=== PATIENT | male | born 1980 | race Caucasian/White ===

== ENCOUNTER 2018-03-23 23:58 | Emergency (ER) | payer MEDICAID, OTHER ==
[~2018-03-23] VITALS: Ht 175.3 cm; Wt 63.0 kg
[~2018-03-23 23:58] MED LIST: ALBU18HF2 INH; ALBU6.7H INH; BENZ-49 PO; CEPH-571 PO; GUAI120015 PO; NO HOME MEDS; ONDA4TAB12 PO; PRED-352 PO
[2018-03-24 00:01] VITALS: BP 130/80
[2018-03-24] MEDS ORDERED: CLIN300C54 PO (00:47)
[2018-03-24] MEDS ORDERED: IBUP-1986 PO (00:47)
== END 2018-03-24 01:03 | disposition home or self-care (01) ==
LOC: ER 23:59
DX: L03.114 Cellulitis of left upper limb (principal); B95.8 Unspecified staphylococcus as the cause of diseases classified elsewhere; M79.672 Pain in left foot; F12.10 Cannabis abuse, uncomplicated; Z90.89 Acquired absence of other organs; Z88.0 Allergy status to penicillin
CPT/HCPCS: 73630; 99284

== ENCOUNTER 2018-07-16 18:11 | Emergency (ER) | payer MEDICAID ==
[~2018-07-16 18:11] MED LIST changes: +IBUP-1986 PO
--- NOTE | 2018-07-16 20:49 | NUR ---
NO RESPONSE FROM [facility] AFTER 3 ATTEMPTS TO INTAKE. CALL PLACED TO NUMBER ON FILE. MESSAGE LEFT EXPRESSING CONCERN FOR PT'S WELL BEING AND TO ENCOURAGE HIM TO RETURN FOR EVAL. DR CAIN INFORMED.
== END 2018-07-16 20:54 | disposition left against medical advice (07) ==
LOC: ER 18:11
DX: R07.81 Pleurodynia (principal); Z53.21 Procedure and treatment not carried out due to patient leaving prior to being seen by health care provider

== ENCOUNTER 2019-08-06 01:51 | Emergency (ER) | payer MEDICAID ==
[~2019-08-06] VITALS: Ht 177.8 cm; Wt 81.8 kg
[~2019-08-06 01:51] MED LIST changes: -ALBU6.7H INH; +ALBU6.7H9 INH
[2019-08-06] MEDS ORDERED: DOXY100C76 PO (02:47)
[2019-08-06 02:54] VITALS: BP 158/81
== END 2019-08-06 02:56 | disposition home or self-care (01) ==
LOC: ER 01:52
DX: S61.552A Open bite of left wrist, initial encounter (principal); F17.200 Nicotine dependence, unspecified, uncomplicated; F12.90 Cannabis use, unspecified, uncomplicated; F15.90 Other stimulant use, unspecified, uncomplicated; Z86.14 Personal history of Methicillin resistant Staphylococcus aureus infection; Z90.49 Acquired absence of other specified parts of digestive tract; Z90.89 Acquired absence of other organs; Z88.0 Allergy status to penicillin; Z79.899 Other long term (current) drug therapy; W54.0XXA Bitten by dog, initial encounter; Y93.89 Activity, other specified; Y92.89 Other specified places as the place of occurrence of the external cause; Y99.8 Other external cause status
CPT/HCPCS: 73110; 73140; 99284

== ENCOUNTER 2019-08-10 06:18 | Emergency (ER) | payer MEDICAID ==
[~2019-08-10] VITALS: Ht 175.3 cm; Wt 79.5 kg
[~2019-08-10 06:18] MED LIST changes: +DOXY100C76 PO
[2019-08-10 06:19] VITALS: BP 154/88
== END 2019-08-10 07:35 | disposition home or self-care (01) ==
LOC: ER 06:18
DX: S61.211D Laceration without foreign body of left index finger without damage to nail, subsequent encounter (principal); F12.90 Cannabis use, unspecified, uncomplicated; F15.90 Other stimulant use, unspecified, uncomplicated; Z90.49 Acquired absence of other specified parts of digestive tract; Z90.89 Acquired absence of other organs; Z86.14 Personal history of Methicillin resistant Staphylococcus aureus infection; Z88.0 Allergy status to penicillin; Z79.899 Other long term (current) drug therapy; W54.0XXD Bitten by dog, subsequent encounter
CPT/HCPCS: 99282

== ENCOUNTER 2019-09-05 00:56 | Emergency (ER) | payer MEDICAID ==
[~2019-09-05] VITALS: Ht 175.3 cm; Wt 81.8 kg
[~2019-09-05 00:56] MED LIST changes: -DOXY100C76 PO
[2019-09-05] MEDS ORDERED: mupirocin 2% ointment 22GM TP STA (01:36)
[2019-09-05] MEDS ORDERED: CefTRIAXone 250MG IM Kit w/LIDOcaine IM ONE (01:40)
[2019-09-05] MEDS ORDERED: azithromycin 250mg tablet PO ONE (01:40)
[2019-09-05 02:19] VITALS: BP 127/77
== END 2019-09-05 02:21 | disposition home or self-care (01) ==
LOC: ER 00:57
DX: S90.812A Abrasion, left foot, initial encounter (principal); L98.9 Disorder of the skin and subcutaneous tissue, unspecified; F17.200 Nicotine dependence, unspecified, uncomplicated; F12.90 Cannabis use, unspecified, uncomplicated; F15.90 Other stimulant use, unspecified, uncomplicated; Z90.49 Acquired absence of other specified parts of digestive tract; Z86.73 Personal history of transient ischemic attack (TIA), and cerebral infarction without residual deficits; Z90.89 Acquired absence of other organs; Z88.0 Allergy status to penicillin; Z79.899 Other long term (current) drug therapy; X58.XXXA Exposure to other specified factors, initial encounter; Y93.89 Activity, other specified; Y92.89 Other specified places as the place of occurrence of the external cause; Y99.8 Other external cause status
CPT/HCPCS: 36415; 87491; 87591; 96372; 99283; J0696

== ENCOUNTER 2019-11-08 21:23 | Emergency (ER) | payer MEDICAID ==
[~2019-11-08] VITALS: Ht 175.3 cm; Wt 81.8 kg
[2019-11-08] MEDS ORDERED: azithromycin 250mg tablet PO ONE (21:45)
[2019-11-08] MEDS ORDERED: CefTRIAXone 250MG IM Kit w/LIDOcaine IM ONE (21:45)
[2019-11-08] MEDS ORDERED: DOXY100C76 PO (21:49)
[2019-11-08 22:05] VITALS: BP 134/69
[2019-11-12 05:14] LABS: RPR Reactive (Non Reactive)
== END 2019-11-08 22:10 | disposition home or self-care (01) ==
LOC: ER 21:24
DX: Z20.2 Contact with and (suspected) exposure to infections with a predominantly sexual mode of transmission (principal); F12.90 Cannabis use, unspecified, uncomplicated; F15.90 Other stimulant use, unspecified, uncomplicated; Z86.14 Personal history of Methicillin resistant Staphylococcus aureus infection; Z90.89 Acquired absence of other organs; Z98.890 Other specified postprocedural states; Z88.0 Allergy status to penicillin; Z79.2 Long term (current) use of antibiotics; Z79.899 Other long term (current) drug therapy
CPT/HCPCS: 36415; 86592; 87491; 87591; 96372; 99283; J0696

== ENCOUNTER 2020-01-14 12:55 | Emergency (ER) | payer MEDICAID ==
[~2020-01-14] VITALS: Ht 175.3 cm; Wt 84.1 kg
[2020-01-14] MEDS ORDERED: CEPH250T PO (13:32)
--- NOTE | 2020-01-14 13:39 | NUR ---
Seen and assessed by provider.
[2020-01-14 13:45] VITALS: BP 132/70
== END 2020-01-14 13:54 | disposition home or self-care (01) ==
LOC: ER 12:55
DX: Z48.01 Encounter for change or removal of surgical wound dressing (principal); F12.90 Cannabis use, unspecified, uncomplicated; F15.90 Other stimulant use, unspecified, uncomplicated; Z86.14 Personal history of Methicillin resistant Staphylococcus aureus infection; Z90.49 Acquired absence of other specified parts of digestive tract; Z88.0 Allergy status to penicillin; Z79.899 Other long term (current) drug therapy
CPT/HCPCS: 99283

== ENCOUNTER 2020-08-26 11:28 | Emergency (ER) | payer MEDICAID ==
[~2020-08-26] VITALS: Ht 175.3 cm; Wt 88.6 kg
[2020-08-26 11:31] VITALS: BP 127/81
--- NOTE | 2020-08-26 13:35 | NUR ---
Attempted to call patient back with no answer. Greer PA aware of LWOBS.
== END 2020-08-26 13:36 | disposition left against medical advice (07) ==
LOC: ER 11:29
DX: A63.8 Other specified predominantly sexually transmitted diseases (principal); Z53.21 Procedure and treatment not carried out due to patient leaving prior to being seen by health care provider

== ENCOUNTER 2020-09-09 22:01 | Emergency (ER) | payer MEDICAID ==
[~2020-09-09] VITALS: Ht 175.3 cm; Wt 88.6 kg
[2020-09-09 22:09] VITALS: BP 124/78
== END 2020-09-10 01:04 | disposition left against medical advice (07) ==
LOC: ER 22:01
DX: L02.419 Cutaneous abscess of limb, unspecified (principal); Z53.21 Procedure and treatment not carried out due to patient leaving prior to being seen by health care provider

== ENCOUNTER 2020-10-29 16:15 | Emergency (ER) | payer MEDICAID ==
[~2020-10-29] VITALS: Ht 175.3 cm; Wt 90.0 kg
[2020-10-29 16:19] VITALS: BP 117/77
[2020-10-29] MEDS ORDERED: TETanus/Pertussis (Acell)/Diphther VAC/PF (Tdap-Adult) 0.5ml syringe IMVAC ONE (17:20)
[2020-10-29] MEDS ORDERED: LIDOcaine 1% W/epiNEPHrine 1:200,000 10ml vial IJ ONE (17:20)
[2020-10-29] MEDS ORDERED: DOXY100C2 PO (19:05)
[2020-10-29] MEDS ORDERED: CEPH-585 PO (19:05)
[2020-10-29] MEDS ORDERED: DOXYCYCLINE 100MG CAPSULE PO STA (19:18)
[2020-10-29] MEDS ORDERED: cephalexin 250mg capsule PO ONE (19:20)
== END 2020-10-29 19:56 | disposition home or self-care (01) ==
LOC: ER 16:16
DX: N49.2 Inflammatory disorders of scrotum (principal); L02.211 Cutaneous abscess of abdominal wall; F12.90 Cannabis use, unspecified, uncomplicated; F15.90 Other stimulant use, unspecified, uncomplicated; Z86.14 Personal history of Methicillin resistant Staphylococcus aureus infection; Z90.89 Acquired absence of other organs; Z98.890 Other specified postprocedural states; Z88.0 Allergy status to penicillin; Z79.2 Long term (current) use of antibiotics; Z79.899 Other long term (current) drug therapy
CPT/HCPCS: 10060; 54700; 76882; 99284

== ENCOUNTER 2020-12-05 13:51 | Emergency (ER) | payer MEDICAID ==
[~2020-12-05] VITALS: Ht 175.3 cm; Wt 94.0 kg
--- NOTE | 2020-12-05 14:54 | NUR ---
provider at triage to evaluate pt,
[2020-12-05 15:35] VITALS: BP 170/10
[2020-12-05 16:16] LABS: BASOPHILS # (AUTO) 0.1 X10'3 (0-0.2); BASOPHILS % (AUTO) 1.3 % (0-1); EOSINOPHILS # (AUTO) 0.1 X10'3 (0-0.9); EOSINOPHILS % (AUTO) 1.7 % (0-6); HEMATOCRIT 45.7 % (42.0-52.0); HEMOGLOBIN 15.5 g/dl (14.0-17.9); LYMPHOCYTES # (AUTO) 1.2 X10'3 (1.1-4.8); LYMPHOCYTES % (AUTO) 17.6 % (21-51); MEAN CORPUSCULAR HEMOGLOBIN 27.3 PG (27.0-31.0); MEAN CORPUSCULAR VOLUME 80.4 FL (78-98); MEAN PLATELET VOLUME 6.3 FL (7.4-10.4); MONOCYTES # (AUTO) 0.6 X10'3 (0-0.9); MONOCYTES % (AUTO) 8.8 % (2-12); NEUTROPHILS # (AUTO) 4.9 X10'3 (1.8-7.7); NEUTROPHILS % (AUTO) 70.6 % (42-75); PLATELET COUNT 207 X10'3 (140-440); RED BLOOD COUNT 5.69 X10'6 (4.70-6.10); RED CELL DISTRIBUTION WIDTH 15.5 % (11.5-14.5); WHITE BLOOD COUNT 6.9 X10'3 (4.5-11.0)
[2020-12-05 16:31] LABS: D-DIMER 0.32 MG/L FEU (0-0.50); PARTIAL THROMBOPLASTIN TIME 24 SECONDS (22-32)
[2020-12-05 16:32] LABS: ALANINE AMINOTRANSFERASE 33 U/L (12-78); ALBUMIN 3.7 G/DL (3.4-5.0); ALBUMIN/GLOBULIN RATIO 0.9 (1.1-1.5); ALKALINE PHOSPHATASE 76 IU/L (46-116); ANION GAP 7 (8-16); ASPARTATE AMINO TRANSFERASE 21 U/L (10-37); BILIRUBIN,TOTAL 0.3 MG/DL (0.1-1.0); BLOOD UREA NITROGEN 14 MG/DL (7-18); BUN/CREATININE RATIO 15.7 (5.4-32.0); CALCIUM 8.6 MG/DL (8.5-10.1); CHLORIDE 104 MMOL/L (99-107); CREATININE 0.89 MG/DL (0.60-1.10); GLUCOSE 95 MG/DL (70-104); POTASSIUM 4.1 MMOL/L (3.5-5.1); SODIUM 140 MMOL/L (135-145); TOTAL CARBON DIOXIDE 28.9 MMOL/L (24-32); TOTAL PROTEIN 7.8 G/DL (6.4-8.2); eGFR > 90 ML/MIN
[2020-12-05 16:41] LABS: MAGNESIUM 2.2 MG/DL (1.5-2.4)
[2020-12-05] MEDS ORDERED: SULF1TAB49 PO (16:58)
== END 2020-12-05 17:23 | disposition home or self-care (01) ==
LOC: ER 13:54
DX: R07.9 Chest pain, unspecified (principal); L02.91 Cutaneous abscess, unspecified; R06.02 Shortness of breath; R05 Cough; F17.210 Nicotine dependence, cigarettes, uncomplicated; Z88.0 Allergy status to penicillin; Z79.899 Other long term (current) drug therapy; F12.10 Cannabis abuse, uncomplicated; F15.10 Other stimulant abuse, uncomplicated
CPT/HCPCS: 36415; 71046; 80053; 83735; 83880; 84443; 84484; 85025; 85379; 85610; 85730; 93005; 99285

== ENCOUNTER 2022-03-11 10:04 | Emergency (ER) | payer MEDICAID ==
[~2022-03-11] VITALS: Ht 175.3 cm; Wt 86.4 kg
[~2022-03-11 10:04] MED LIST changes: +ALBU6.7H14 INH; -ALBU6.7H9 INH; -BENZ-49 PO; +TES100C PO
[2022-03-11 10:48] VITALS: BP 108/72
[2022-03-11] MEDS ORDERED: DOXY100C43 PO (11:41)
== END 2022-03-11 11:47 | disposition home or self-care (01) ==
LOC: ER 10:05
DX: L73.8 Other specified follicular disorders (principal); F12.10 Cannabis abuse, uncomplicated; F15.10 Other stimulant abuse, uncomplicated; Z86.14 Personal history of Methicillin resistant Staphylococcus aureus infection; Z88.0 Allergy status to penicillin; Z79.899 Other long term (current) drug therapy; Z79.2 Long term (current) use of antibiotics
CPT/HCPCS: 99283

== ENCOUNTER 2022-07-16 08:30 | Emergency (ER) | payer MEDICAID ==
[~2022-07-16] VITALS: Ht 175.3 cm; Wt 81.0 kg
[~2022-07-16 08:30] MED LIST changes: +BENZ-111 PO; -TES100C PO
[2022-07-16 08:41] VITALS: BP 123/63
== END 2022-07-16 09:17 | disposition home or self-care (01) ==
LOC: ER 08:30
DX: B34.9 Viral infection, unspecified (principal); F12.10 Cannabis abuse, uncomplicated; F15.10 Other stimulant abuse, uncomplicated; Z86.14 Personal history of Methicillin resistant Staphylococcus aureus infection; Z79.899 Other long term (current) drug therapy; Z90.49 Acquired absence of other specified parts of digestive tract; Z88.0 Allergy status to penicillin; Z79.1 Long term (current) use of non-steroidal anti-inflammatories (NSAID); Z79.2 Long term (current) use of antibiotics
CPT/HCPCS: 99282

== ENCOUNTER 2024-07-08 07:19 | Emergency (ER) | payer MEDICAID ==
[~2024-07-08] VITALS: Ht 175.3 cm; Wt 84.6 kg
[~2024-07-08 07:19] MED LIST changes: +CYCL-1 PO; +ONDA-243 PO; -ONDA4TAB12 PO
[2024-07-08 07:22] VITALS: BP 120/74; TEMP 98.1; O2SAT 97
[2024-07-08 08:22] VITALS: PULSE 87; RESP 21
== END 2024-07-08 08:26 | disposition home or self-care (01) ==
LOC: ER 07:20
DX: J02.9 Acute pharyngitis, unspecified (principal); R50.9 Fever, unspecified; R05.9 Cough, unspecified; F17.200 Nicotine dependence, unspecified, uncomplicated; Z88.0 Allergy status to penicillin; Z90.49 Acquired absence of other specified parts of digestive tract; Z79.1 Long term (current) use of non-steroidal anti-inflammatories (NSAID); Z79.52 Long term (current) use of systemic steroids; Z79.899 Other long term (current) drug therapy
CPT/HCPCS: 99281